=== PATIENT | female | born 1940 | race Caucasian/White ===

== ENCOUNTER 2017-08-05 07:13 | Day surgery (SDC) | payer MEDICARE, OTHER ==
[~2017-08-05 07:13] MED LIST: Lactated Ringers 1,000 ML IV SCH; Sodium Chloride 0.9% 10 ML Syringe FLUSH PRN; ceFAZolin 1 GM in Premix Bag 1 BAG IV ONE
[2017-08-05] MEDS ORDERED: ePHEDrine 50 MG/ML SDV IV ONE (07:14)
[2017-08-05] MEDS ORDERED: Ondansetron 4 MG/2 ML SDV IV ONE (07:14)
[2017-08-05] MEDS ORDERED: Bupivacaine 0.5% 10 ML SDV INJECT ONE ×5 (07:14→11:31)
[2017-08-05] MEDS ORDERED: Lactated Ringers 1,000 ML IV ONE (07:14)
[2017-08-05] MEDS ORDERED: Betamethasone Acetate/Betamethasone Sod Phosphate 30 MG/5 ML MDV ONE ×3 (07:14→11:33)
[2017-08-05] MEDS ORDERED: Glycopyrrolate 0.2 MG/ML 2 ML SDV IV ONE (07:14)
[2017-08-05] MEDS ORDERED: Lidocaine 1% 30 ML SDV INJECT ONE ×5 (07:14→11:31)
[2017-08-05] MEDS ORDERED: Propofol 200 MG/20 ML SDV IV ONE (07:14)
[2017-08-05] MEDS ORDERED: Lidocaine 2% 20 ML MDV INJECT ONE (07:14)
[2017-08-05] MEDS ORDERED: fentaNYL 100 MCG/2 ML SDV IV ONE (07:14)
[2017-08-05] MEDS ORDERED: Lidocaine 1% 30 ML SDV ONE (07:30)
[2017-08-05] MEDS ORDERED: Bupivacaine 0.5% 10 ML SDV ONE (07:30)
[2017-08-05] MEDS ORDERED: Midazolam 1 MG/ML 2 ML SDV ONE (08:17)
[2017-08-05] MEDS ORDERED: Ondansetron 4 MG/2 ML SDV ONE (08:17)
[2017-08-05] MEDS ORDERED: fentaNYL 100 MCG/2 ML SDV ONE (08:17)
[2017-08-05] MEDS ORDERED: ePHEDrine 50 MG/ML SDV ONE (08:18)
[2017-08-05] MEDS ORDERED: Sodium Chloride 0.9% 100 ML ONE (08:18)
[2017-08-05] MEDS ORDERED: Propofol 200 MG/20 ML SDV ONE (08:18)
[2017-08-05] MEDS ORDERED: Phenylephrine 1% 10 MG/ML SDV ONE (08:18)
[2017-08-05] MEDS ORDERED: Glycopyrrolate 0.2 MG/ML 2 ML SDV ONE (08:18)
[2017-08-05] MEDS ORDERED: Succinylcholine 200 MG/10 ML MDV ONE (08:19)
[2017-08-05] MEDS ORDERED: Lidocaine 2% 20 ML MDV ONE (08:19)
[2017-08-05] MEDS ORDERED: Rocuronium 50 MG/5 ML Vial ONE (08:19)
[2017-08-05] MEDS ORDERED: Acetaminophen/oxyCODONE 325-5 MG Tab PO PRN (12:05)
--- NOTE | 2017-08-05 12:19 | PCM.OPNOTE ---
- General Post-Op/Procedure Note Date of Surgery/Procedure: 08/05/17 Operative Procedure(s): right foot 1st metatarsal cuneiform joint arthrodesis bunionectomy, talonavicular joint exostectomy Pre Op Diagnosis: right foot painful bunion, TN joint exostosis Post-Op Diagnosis: meg Anesthesia Technique: General LMA Primary Surgeon: Herminia Greenwood Anesthesia Provider: Kirby Sierra EBL in mLs: 20 Complications: none Free Text/Narrative:: Intake & Output 08/04/17 08/05/17 08/05/17 22:59 06:59 14:59 Intake Total 50 Balance 50 Pt tolerated procedure well and was transported to pacu with vss and vascular status intact to all digits. TT 73 mins. Well padded L&U splint applied. Junior cannulated 3.0 screws at fusion site.
[2017-08-05 14:14] VITALS: BP 127/64
--- NOTE | 2017-08-05 18:27 | OR ---
DATE: 08/05/2017 PREOPERATIVE DIAGNOSES: 1. Right foot painful bunion deformity. 2. Right foot talonavicular joint exostosis. POSTOPERATIVE DIAGNOSES: 1. Right foot painful bunion deformity. 2. Right foot talonavicular joint exostosis. PROCEDURES PERFORMED: 1. Right foot first metatarsal cuneiform arthrodesis/bunionectomy. 2. Right foot talonavicular joint exostectomy. ANESTHESIA: General LMA with local block of 10 mL of 1:1 mixture of 1% lidocaine plain and 0.5% Marcaine plain. TOURNIQUET TIME: 73 minutes, pneumatic ankle tourniquet. ESTIMATED BLOOD LOSS: Minimal. SPECIMEN: None. COMPLICATIONS: None. INDICATIONS: Lisa is a 76-year-old female who returns for bunions. I have seen her in the past for the bunions and we have tried toe spacers, bunion splinting, and insert for her shoe with no relief. She has also tried multiple wider shoes with no relief. She is still having pain at the bunion site and also at the mid foot. When she walks, the top of her foot will swell up by the end of the day. She has had the bunions for many years, worse on the right foot. The right foot is gradually worsening. Pain is 8 out of 10 at worst, worse with walking and standing, also with shoe gear. She reports her big toe was started to slide under 2nd toe, pushing that toe up. X-rays, three-views, of the right foot reveal medially deviated first metatarsal with IM angle of 18 degrees, hallux abductus angle of 44 degrees, slightly long first metatarsal. There is bone fragment/spurring of the dorsal talonavicular joint. The patient voiced understanding of the proposed procedure and possible complications and elects to have surgery at this time. DESCRIPTION OF PROCEDURE: The patient was taken to the operating room, lying in the supine position. After adequate anesthesia induction as described above, the right foot was prepped and draped in the usual sterile fashion. A pneumatic ankle tourniquet was inflated to 225 mmHg. Attention was then directed to the dorsum of the right foot, where an approximately 8 cm curvilinear incision was made overlying the first metatarsal. Incision was deepened to the periosteum with sharp and blunt dissection with care to retract all neurovascular structures. An inverted-L capsulotomy was performed. The joint capsule was reflected to expose the distal first metatarsal and then also the first metatarsal cuneiform joint. The medial eminence was resected using a sagittal saw. The first MTPJ was inspected and there was noted to be 2 small areas of cartilaginous defects at the metatarsal head that were drilled with a 0.062 inch K-wire. The remainder of the joint appeared healthy without any defects. All articular cartilage was resected from the first metatarsal cuneiform joint via curettage. A sagittal saw was then used to resect just a small portion of the medial cuneiform at the very lateral aspect. A 0.062 inch K-wire was used to fenestrate the subchondral bone of the first metatarsal base and the medial cuneiform as well as an osteotome. The bunion was then reduced and temporary fixation was used using two 3.0 K-wires from the 3.0 K-wire set. Fluoroscopy was used to verify adequate reduction of the deformity as well as proper fixation. Two partially-threaded 3.0 cannulated screws were then inserted in a crossing fashion across the first metatarsal cuneiform joint. The osteotomy site was noted to be stable with varus, valgus, and axial forces applied. Fluoroscopy was then again used to verify proper reduction of the deformity as well as proper screw length and adequate fixation. The area was then irrigated with copious amounts of sterile saline. Medial capsulorrhaphy was performed. Medial capsular closure was completed with 2-0 Vicryl, the remaining capsular closure was completed with 3-0 Vicryl, and skin closure was completed with 4-0 nylon. Attention was then directed to the dorsal aspect of the talonavicular joint area, just medial to the anterior tibial tendon. Sharp and blunt dissection were performed down to the level of the talonavicular joint capsule. Capsulotomy was performed with a #15 blade and the talonavicular joint was visualized. Care was taken to gently retract all neurovascular bundles. A large bony fragment was noted at the dorsal aspect of the talonavicular joint that was completely removed. There was also some spurring around that loose body, which was also debrided with a rongeur and a bone rasp. There was no remaining spurring identified and the rest of the joint appeared healthy in appearance. The area was then irrigated with copious amounts of sterile saline. Fluoroscopy was used to verify all spurring was removed. Deep closure was completed with 3-0 Vicryl, and skin closure was completed with 4-0 nylon. The areas were then dressed with Xeroform to the incision site, fluffs, Webril, and a well-padded L and U splint with the foot in neutral position. The patient tolerated anesthesia and procedure well and was transferred to recovery room with vital signs stable and vascular status intact as noted by immediate hyperemia to all digits upon deflation of ankle tourniquet. Total tourniquet time was 73 minutes. The patient was then discharged home when she met hospital discharge requirements. [facility] /[id number]
== END 2017-08-05 15:22 | disposition home or self-care (01) ==
LOC: DL.SDS 07:13
PROVIDERS: ATTEND Podiatrist
DX: M21.611 Bunion of right foot (principal); M89.9 Disorder of bone, unspecified; I10 Essential (primary) hypertension; F41.8 Other specified anxiety disorders; Z98.890 Other specified postprocedural states; Z90.710 Acquired absence of both cervix and uterus; Z79.899 Other long term (current) drug therapy
CPT/HCPCS: 28297; C1713; J0690; J0702; J2405; J2704; J3010; J7120; 01470; J3490

== ENCOUNTER 2018-05-25 05:10 | Day surgery (SDC) | payer MEDICARE, OTHER ==
[2018-05-25] MEDS ORDERED: Midazolam 1 MG/ML 2 ML SDV IV ONE ×3 (05:11→06:52)
[2018-05-25] MEDS ORDERED: fentaNYL 100 MCG/2 ML SDV IV ONE ×3 (05:11→06:50)
[2018-05-25] MEDS ORDERED: Midazolam 1 MG/ML 2 ML SDV ONE (06:30)
[2018-05-25] MEDS ORDERED: fentaNYL 100 MCG/2 ML SDV ONE (06:30)
[2018-05-25] MEDS ORDERED: Sodium Chloride 0.9% 10 ML Syringe FLUSH PRN (06:34)
[2018-05-25] MEDS ORDERED: Dextrose 5%-0.45% NaCl 1,000 ML IV SCH (06:45)
--- NOTE | 2018-05-25 08:43 | OR ---
DATE: 05/25/2018 PROCEDURES: Esophagogastroduodenoscopy, narrow-band imaging, and multiple pinch biopsies. INSTRUMENT USED: GIF-H180 Olympus video panendoscope. PREMEDICATIONS: No oral topical anesthesia used. Fentanyl 100 mcg intravenous, Versed 1.5 mg intravenous. Nasal 2 L O2 cannula. The procedure was done under pulse oximetry, BP recording, and hand model. INDICATIONS: The patient with gastrointestinal bleeding and related iron- deficiency anemia, requiring packed cell transfusion, on long-term NSAIDs. DESCRIPTION OF PROCEDURE: Esophagogastroduodenoscopy is performed for detection of any active erosive lesions. Malignancy also under consideration. H. pylori status to be determined. Endoscopic hemostasis therapy if needed. The scope was passed with ease. Adequate visualization of the esophagus was made from proximal to distal areas. No upper esophageal lesions identified. No distal esophageal stricture. No uphill or downhill esophageal varices. No Maribell- Erazo tear. No evidence of erosive esophagitis by Watkins criteria. No esophageal polyp or tumor mass identified. Tertiary contractions of the esophagus were noted. Sliding hiatal hernia was noted with some deformity involving the Z-line. No proximal gastric varices noted. Gastric fundus examination by retroflexion showed multiple erosions without bleeding from them. No gastric ulcer, malignant mass, or vascular ectasia identified. Patchy erythema of the gastric antrum was noted. Duodenal bulb showed no ulcer. Visualized second part of the duodenum was unremarkable. Multiple pinch biopsies were taken from the gastric antrum and proximal body and sent for PyloriTek test for H. pylori, and if negative in an hour, tissue is to be sent for histopathology. No bleeding was noted from any of the visualized areas at the completion of examination. Photographs were taken of the duodenal bulb, gastric antrum, fundus, and distal esophagus. IMPRESSION: 1. Presbyesophagus. 2. Sliding hiatal hernia. 3. Ellis's erosions. 4. Patchy antral gastritis. The patient tolerated the procedure well. [facility] /[id number]
[2018-05-25 09:57] VITALS: BP 138/58
--- NOTE | 2018-05-25 11:28 | LETTER ---
05/25/2018 Lucy Eason MD [address] [address] RE: LISA ELLIOTT STANLEY : [address] Eason: Ms. Lisa Elliott had esophagogastroduodenoscopy done this morning and she tolerated the procedure well. I herewith send a copy of the endoscopy note and photographs for your review. Thank you. Sincerely, [facility] /[id number]
== END 2018-05-25 09:58 | disposition home or self-care (01) ==
LOC: DL.ENDO 05:10
PROVIDERS: ATTEND Internal Medicine Gastroenterology
DX: D50.9 Iron deficiency anemia, unspecified (principal); K25.9 Gastric ulcer, unspecified as acute or chronic, without hemorrhage or perforation; K29.70 Gastritis, unspecified, without bleeding; K22.8 Other specified diseases of esophagus; K44.9 Diaphragmatic hernia without obstruction or gangrene; I10 Essential (primary) hypertension; E78.5 Hyperlipidemia, unspecified; F41.1 Generalized anxiety disorder; F32.9 Major depressive disorder, single episode, unspecified
CPT/HCPCS: 43239; 87077; J2250; J3010

== ENCOUNTER 2019-11-22 07:14 | Day surgery (SDC) | payer MEDICARE, OTHER ==
[2019-11-22] MEDS ORDERED: Sodium Chloride 0.9% 10 ML Syringe IV ONE (07:15)
[2019-11-22] MEDS ORDERED: Dexamethasone 4 MG/ML SDV IV ONE (07:15)
[2019-11-22] MEDS ORDERED: Midazolam 1 MG/ML 2 ML SDV IV ONE (07:15)
[2019-11-22] MEDS ORDERED: Ondansetron 4 MG/2 ML SDV IVPUSH PRN (07:30)
[2019-11-22] MEDS ORDERED: Proparacaine 0.5% Ophth Soln 15 ML Bottle EYELF ONE (07:30)
[2019-11-22] MEDS ORDERED: Povidone-Iodine 5% Sterile Ophth Soln 30 ML Bottle EYELF ONE ×2 (07:30→09:16)
[2019-11-22] MEDS ORDERED: Acetaminophen 325 MG Tab PO PRN (07:30)
[2019-11-22] MEDS ORDERED: Timolol Maleate 0.5% Ophth Soln 5 ML Bottle EYELF ONE (07:30)
[2019-11-22] MEDS ORDERED: Sodium Chloride 0.9% 10 ML Syringe FLUSH PRN (07:30)
[2019-11-22] MEDS ORDERED: Moxifloxacin 0.5% Ophth Soln 3 ML Bottle EYELF ONE (07:30)
[2019-11-22] MEDS ORDERED: Cataract Ophth Solution EYELF ONE (07:30)
[2019-11-22] MEDS ORDERED: Phenylephrine 10% Ophth Soln 5 ML Bot EYELF ONE ×2 (07:30→09:17)
[2019-11-22] MEDS ORDERED: Phenylephrine 10% Ophth Soln 5 ML Bot EYELF PRN (07:30)
[2019-11-22] MEDS ORDERED: Lidocaine 1% 30 ML SDV ONE (09:15)
[2019-11-22] MEDS ORDERED: Diclofenac Sodium 0.1% Ophth Soln 5 ML Bottle EYELF ONE (09:16)
[2019-11-22] MEDS ORDERED: Apraclonidine 0.5% Ophth Soln 5 ML Bot EYELF ONE (09:16)
[2019-11-22] MEDS ORDERED: Tetracaine HCl/PF 0.5% 4 ML Bottle EYELF ONE (09:16)
[2019-11-22] MEDS ORDERED: Vancomycin 500 MG SDV EYELF ONE (09:17)
[2019-11-22] MEDS ORDERED: Chondroitin Sulfate/Hyaluronate Sodium Ophth Inj 0.75 ML Syringe EYELF ONE (09:17)
[2019-11-22] MEDS ORDERED: Balanced Salt Solution Ophth Irrig 500 ML Bottle IOCULAR ONE (09:17)
--- NOTE | 2019-11-22 11:29 | OR ---
DATE: 11/22/2019 PREOPERATIVE DIAGNOSIS: Visually significant mixed cataract, left eye. POSTOPERATIVE DIAGNOSIS: Visually significant mixed cataract, left eye. PROCEDURE: Extracapsular cataract extraction with intraocular lens implant, left eye. ANESTHESIA: Topical/local MAC. COMPLICATIONS: None. INDICATION: The patient was seen in the clinic with complaints of blurred vision. Examination revealed visually significant cataract. I explained options, I offered cataract surgery, and I explained risks, including, but not limited to, infection, retinal detachment, loss of vision, need for additional surgery amongst others. We discussed implant options. She requested a toric implant. She understands that she may still require glasses for some activities, especially near work. OPERATIVE DESCRIPTION: After informed consent was obtained and the risks, benefits, and alternatives were explained, the patient was brought to the operative suite and topical anesthesia was administered. The patient was then prepped and draped in the sterile fashion and attention was placed on the left eye. A sterile lid speculum was placed into the left eye to allow operative exposure. A full-thickness paracentesis was made in the temporal portion of the operative eye. Preservative-free lidocaine 0.1 mL was injected into the anterior chamber followed by viscoelastic. A full-thickness corneal incision was then made into the anterior chamber. A bent needle cystotome was used to create a small santana in the anterior capsule. The capsulorrhexis forceps was then used to create a 360-degree curvilinear capsulorrhexis. The nucleus was then removed using a phacoemulsification handpiece and the remaining cortical material was then removed with irrigation and aspiration handpiece. Following removal of the cortical material, the capsular bag was then inspected and noted to be free of any holes or tears. Viscoelastic was then injected into the capsular bag and the intraocular lens was inserted into the capsular bag. The implant was oriented to correspond with preoperative corneal salas made with the patient in the upright position. The viscoelastic material was then removed from both the anterior and posterior chambers and from behind the IOL. The lens and capsular bag were then reinspected. The IOL was well centered and the capsular bag intact. The wound and paracentesis sites were inspected and hydrated with balanced saline solution. Both were found to be self-sealing. The intraocular pressure was assessed digitally and found to be within normal range. A good red reflex was noted at the completion of the procedure. No complications occurred during the operation. At the completion of the procedure, DineroMailnelil, Voltaren, and Iopidine drops were placed into the operative eye. A sterile eye shield was placed over the operative eye and the patient was transported to the postoperative recovery area having tolerated the procedure well. Postoperative instructions were given along with a postoperative appointment. The patient was advised to call with any questions or concerns. [facility] /[id number]
[2019-11-22 17:05] VITALS: BP 137/63; PULSE 63
== END 2019-11-22 10:32 | disposition home or self-care (01) ==
LOC: DL.SDS 07:14
PROVIDERS: ATTEND Ophthalmology
DX: H26.9 Unspecified cataract (principal); I10 Essential (primary) hypertension; E78.5 Hyperlipidemia, unspecified; H70.91 Unspecified mastoiditis, right ear; J01.90 Acute sinusitis, unspecified; F41.9 Anxiety disorder, unspecified; F32.9 Major depressive disorder, single episode, unspecified; E66.9 Obesity, unspecified; Z79.2 Long term (current) use of antibiotics; Z79.51 Long term (current) use of inhaled steroids; Z79.899 Other long term (current) drug therapy; Z68.37 Body mass index [BMI] 37.0-37.9, adult
CPT/HCPCS: J1100; J2001; J2250; J3370

== ENCOUNTER 2019-11-29 07:17 | Day surgery (SDC) | payer MEDICARE, OTHER ==
[2019-11-29] MEDS ORDERED: Midazolam 1 MG/ML 2 ML SDV IV ONE (07:18)
[2019-11-29] MEDS ORDERED: Dexamethasone 4 MG/ML SDV IV ONE (07:18)
[2019-11-29] MEDS ORDERED: Sodium Chloride 0.9% 10 ML Syringe IV ONE (07:18)
[2019-11-29] MEDS ORDERED: Proparacaine 0.5% Ophth Soln 15 ML Bottle EYERT ONE (07:30)
[2019-11-29] MEDS ORDERED: Phenylephrine 10% Ophth Soln 5 ML Bot EYERT ONE (07:30)
[2019-11-29] MEDS ORDERED: Sodium Chloride 0.9% 10 ML Syringe FLUSH PRN (07:30)
[2019-11-29] MEDS ORDERED: Povidone-Iodine 5% Sterile Ophth Soln 30 ML Bottle EYERT ONE ×2 (07:30→09:25)
[2019-11-29] MEDS ORDERED: Cataract Ophth Solution EYERT ONE (07:30)
[2019-11-29] MEDS ORDERED: Acetaminophen 325 MG Tab PO PRN (07:30)
[2019-11-29] MEDS ORDERED: Ondansetron 4 MG/2 ML SDV IVPUSH PRN (07:30)
[2019-11-29] MEDS ORDERED: Moxifloxacin 0.5% Ophth Soln 3 ML Bottle EYERT ONE (07:30)
[2019-11-29] MEDS ORDERED: Timolol Maleate 0.5% Ophth Soln 5 ML Bottle EYERT ONE (07:30)
[2019-11-29] MEDS ORDERED: Phenylephrine 10% Ophth Soln 5 ML Bot EYERT PRN (07:30)
[2019-11-29] MEDS ORDERED: Tetracaine HCl/PF 0.5% 4 ML Bottle EYERT ONE (09:24)
[2019-11-29] MEDS ORDERED: Lidocaine 1% 30 ML SDV ONE (09:25)
[2019-11-29] MEDS ORDERED: Apraclonidine 0.5% Ophth Soln 5 ML Bot EYERT ONE (09:25)
[2019-11-29] MEDS ORDERED: Diclofenac Sodium 0.1% Ophth Soln 5 ML Bottle EYERT ONE (09:26)
[2019-11-29] MEDS ORDERED: Balanced Salt Solution Ophth Irrig 500 ML Bottle IOCULAR ONE (09:26)
[2019-11-29] MEDS ORDERED: Vancomycin 500 MG SDV EYERT ONE (09:26)
[2019-11-29] MEDS ORDERED: Chondroitin Sulfate/Hyaluronate Sodium Ophth Inj 0.75 ML Syringe EYERT ONE (09:26)
--- NOTE | 2019-11-29 10:53 | OR ---
DATE: 11/29/2019 PREOPERATIVE DIAGNOSIS: Visually significant mixed cataract, right eye. POSTOPERATIVE DIAGNOSIS: Visually significant mixed cataract, right eye. PROCEDURE: Extracapsular cataract extraction with intraocular lens implant, right eye. ANESTHESIA: Topical/local MAC. COMPLICATIONS: None. INDICATION: Ms. Elliott was seen in the clinic with complaints of blurred vision. Examination revealed visually significant cataract. She also has a history of epithelial basement membrane disease. I explained options, I offered cataract surgery, and I explained risks, including, but not limited to, infection, retinal detachment, loss of vision, need for additional surgery amongst others. We discussed implant options. She has requested a toric implant. She understands that she will likely still require glasses for some activities. She voiced understanding with respect to risks and limitations and wished to proceed. OPERATIVE DESCRIPTION: After informed consent was obtained and the risks, benefits, and alternatives were explained, the patient was brought to the operative suite and topical anesthesia was administered. The patient was then prepped and draped in the sterile fashion and attention was placed on the right eye. A sterile lid speculum was placed into the right eye to allow operative exposure. A full-thickness paracentesis was made in the temporal portion of the operative eye. Preservative-free lidocaine 0.1 mL was injected into the anterior chamber followed by viscoelastic. A full-thickness corneal incision was then made into the anterior chamber. A bent needle cystotome was used to create a small santana in the anterior capsule. The capsulorrhexis forceps was then used to create a 360-degree curvilinear capsulorrhexis. The nucleus was then removed using a phacoemulsification handpiece and the remaining cortical material was then removed with irrigation and aspiration handpiece. Following removal of the cortical material, the capsular bag was then inspected and noted to be free of any holes or tears. Viscoelastic was then injected into the capsular bag and the intraocular lens was inserted into the capsular bag. The implant was oriented to correspond with preoperative corneal salas made with the patient in the upright position. The viscoelastic material was then removed from both the anterior and posterior chambers and from behind the IOL. The lens and capsular bag were then reinspected. The IOL was well centered and the capsular bag intact. The wound and paracentesis sites were inspected and hydrated with balanced saline solution. Both were found to be self-sealing. The intraocular pressure was assessed digitally and found to be within normal range. A good red reflex was noted at the completion of the procedure. No complications occurred during the operation. At the completion of the procedure, Maxitrol, Voltaren, and Iopidine drops were placed into the operative eye. A sterile eye shield was placed over the operative eye and the patient was transported to the postoperative recovery area having tolerated the procedure well. Postoperative instructions were given along with a postoperative appointment. The patient was advised to call with any questions or concerns. [facility] /[id number]
[2019-11-29 15:37] VITALS: BP 121/63; PULSE 66
== END 2019-11-29 10:36 | disposition home or self-care (01) ==
LOC: DL.SDS 07:17
PROVIDERS: ATTEND Ophthalmology
DX: H26.9 Unspecified cataract (principal); H70.91 Unspecified mastoiditis, right ear; I10 Essential (primary) hypertension; E78.5 Hyperlipidemia, unspecified; K58.9 Irritable bowel syndrome, unspecified; F32.9 Major depressive disorder, single episode, unspecified; F41.9 Anxiety disorder, unspecified; E66.9 Obesity, unspecified; Z79.899 Other long term (current) drug therapy; Z68.33 Body mass index [BMI] 33.0-33.9, adult; Z79.51 Long term (current) use of inhaled steroids
CPT/HCPCS: 00142; 66984; J2001; J3370; V2787; J1100; J2250

== ENCOUNTER 2020-12-03 21:56 | Emergency (ER) | payer MEDICARE, OTHER ==
[2020-12-03 22:08] VITALS: BP 172/90; PULSE 80
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
== END 2020-12-03 23:02 | disposition home or self-care (01) ==
LOC: DL.ED 21:56
DX: S80.01XA Contusion of right knee, initial encounter (principal); S80.02XA Contusion of left knee, initial encounter; S70.12XA Contusion of left thigh, initial encounter; I48.91 Unspecified atrial fibrillation; I10 Essential (primary) hypertension; E78.00 Pure hypercholesterolemia, unspecified; K21.9 Gastro-esophageal reflux disease without esophagitis; M19.90 Unspecified osteoarthritis, unspecified site; E66.9 Obesity, unspecified; Z68.34 Body mass index [BMI] 34.0-34.9, adult; Z79.899 Other long term (current) drug therapy; W00.0XXA Fall on same level due to ice and snow, initial encounter; Y93.01 Activity, walking, marching and hiking; Y92.481 Parking lot as the place of occurrence of the external cause
CPT/HCPCS: 99283

== ENCOUNTER 2022-12-10 07:05 | Day surgery (SDC) | payer MEDICARE, OTHER ==
[~2022-12-10 07:05] MED LIST changes: +Dextrose 5%-0.45% NaCl 1,000 ML IV SCH; -Lactated Ringers 1,000 ML IV SCH; +Midazolam 1 MG/ML 2 ML SDV ONE; +Sodium Chloride 0.9% 10 ML Syringe FLUSH SCH; -ceFAZolin 1 GM in Premix Bag 1 BAG IV ONE; +fentaNYL 100 MCG/2 ML SDV ONE
[2022-12-10] MEDS ORDERED: Midazolam 1 MG/ML 2 ML SDV IV ONE ×7 (07:06→08:46)
[2022-12-10] MEDS ORDERED: fentaNYL 100 MCG/2 ML SDV IV ONE ×3 (07:06→08:35)
[2022-12-10 10:45] VITALS: BP 140/56; PULSE 60
== END 2022-12-10 10:35 | disposition home or self-care (01) ==
LOC: DL.ENDO 07:05
PROVIDERS: ATTEND Internal Medicine Gastroenterology
DX: Z12.11 Encounter for screening for malignant neoplasm of colon (principal); K64.4 Residual hemorrhoidal skin tags; K57.30 Diverticulosis of large intestine without perforation or abscess without bleeding; I10 Essential (primary) hypertension; E78.5 Hyperlipidemia, unspecified; F41.1 Generalized anxiety disorder; F32.A Depression, unspecified; Z98.890 Other specified postprocedural states
CPT/HCPCS: J2250; J3010; J7042

== ENCOUNTER 2025-03-20 06:27 | Day surgery (SDC) | payer MEDICARE, OTHER ==
[2025-03-20] MEDS ORDERED: Lidocaine 2% 20 ML MDV NERVRT ONE (06:28)
[2025-03-20] MEDS ORDERED: Propofol 200 MG/20 ML SDV IV ONE (06:28)
[2025-03-20] MEDS ORDERED: Lactated Ringers 600 ML IV ONE (06:28)
[2025-03-20] MEDS: Lactated Ringers 1,000 ML IV SCH (07:12)
[2025-03-20 08:53] VITALS: PULSE 51
[2025-03-20 08:56] VITALS: BP 158/64
== END 2025-03-20 10:28 | disposition home or self-care (01) ==
LOC: DL.ENDO 06:27
PROVIDERS: ATTEND Internal Medicine Gastroenterology
DX: K59.09 Other constipation (principal); K63.5 Polyp of colon; K57.30 Diverticulosis of large intestine without perforation or abscess without bleeding; I10 Essential (primary) hypertension; E66.9 Obesity, unspecified; Z68.36 Body mass index [BMI] 36.0-36.9, adult
CPT/HCPCS: 45378; J7120; 00811; 99100; J2003; J2704